=== PATIENT | male | born 1975 | race African-American/Black ===

== ENCOUNTER 2018-03-08 14:07 | Emergency (ER) | payer OTHER ==
[~2018-03-08] VITALS: Ht 182.9 cm; Wt 106.6 kg
--- NOTE | 2018-03-08 17:28 | ED UPPER/LOWER EXTREMITY COMPL ---
History of Present Illness General Chief Complaint: Upper Extremity Injury Stated Complaint: R SHOULDER PAIN LIFTING INJURY Source: patient Exam Limitations: no limitations Vital Signs & Intake/Output Vital Signs & Intake/Output Vital Signs Date Time Temp Pulse Resp B/P B/P Pulse O2 O2 Flow FiO2 Mean Ox Delivery Rate 03/08 1931 97.0 88 20 122/68 98 Room Air 03/08 1724 98.4 101 16 119/62 97 Room Air 03/08 1522 98.7 74 16 141/83 98 Room Air 03/08 1505 98.0 73 18 133/67 98 Room Air Allergies Coded Allergies: No Known Allergies (03/08/18) Reconcile Medications Ibuprofen 800 MG TABLET 1 TAB PO TID pain Oxycodone HCl/Acetaminophen (Percocet 5-325 MG Tablet) 5 MG-325 MG TABLET 1 TAB PO BID pain Triage Note: 42 YEAR OLD MALE STATES THAT HE HAS A TEAR IN R SHOULDER AREA AND HAS SURGERY SCHEDULED 03/15 , 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 PT TOOK TYLENOL OVER AND HOUR AGO WITH NO RELIEF. MEDICATED AT THIS TIME WITH MOTRIN PER ORDER Triage Nurses Notes Reviewed? yes Onset: Abrupt Duration: hour(s):, constant Timing: single episode today Severity: moderate, severe Pain/Injury Location: Right: Shoulder. HPI: 42-year-old male comes into the emergency room for further evaluation of right shoulder pain. Patient reports she has a pre-existing problem injury to his right shoulder. He was lifting with his left arm at work when suddenly he felt severe pain in his right arm has not been able to move it without any pain. Denied feeling any pops. Came in by ambulance. Denies any other associated symptoms. (Ciarna Blackman) Past History Travel History Traveled to [place] past 21 day No Medical History Any Pertinent Medical History? see below for history Neurological: NONE EENT: NONE Cardiovascular: NONE Respiratory: NONE Gastrointestinal: NONE Hepatic: NONE Renal: NONE Musculoskeletal: NONE Psychiatric: NONE Endocrine: NONE Blood Disorders: NONE Cancer(s): NONE IT HELP DESK ANALYST/Reproductive: NONE Surgical History Surgical History: non-contributory Psychosocial History What is your primary language Georgian Tobacco Use: Never used ETOH Use: denies use Illicit Drug Use: denies illicit drug use Family History Hx Contributory? No (Ciaran lBackman) Review of Systems Review of Systems Constitutional: Reports: no symptoms. EENTM: Reports: no symptoms. Respiratory: Reports: no symptoms. Cardiovascular: Reports: no symptoms. Gastrointestinal/Abdominal: Reports: no symptoms. Genitourinary: Reports: no symptoms. Musculoskeletal: Reports: see HPI. Skin: Reports: no symptoms. Neurological/Psychological: Reports: no symptoms. Hematologic/Endocrine: Reports: no symptoms. Immunological: Reports: no symptoms. All Other Systems: Reviewed and Negative (Ciaran Blackman) Physical Exam Physical Exam General Appearance: well developed/nourished, mild distress Head: atraumatic Eyes: Bilateral: normal appearance. 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 Discussed w/RAD: Radiology Read. Radiology Impression: PATIENT: DANIELA CORDOBA PRESENT AGE: 42 PATIENT ACCOUNT NO: [id number] : 77 LOCATION: [facility] ORDERING PHYSICIAN: Ciaran CEBALLOS SERVICE DATE: 03/08/18 EXAM TYPE : RAD - XRY-SHOULDER COMPLETE-RIGHT EXAMINATION: SHOULDER 3 VIEWS, RIGHT CLINICAL INFORMATION: Right shoulder pain. COMPARISON: None. TECHNIQUE: AP views of the right shoulder were obtained in internal and external rotation. In addition, a Y view was obtained. FINDINGS: There are no fractures or dislocations. The humeral head is seated within a well-formed glenoid. The AC joint is intact. IMPRESSION: Unremarkable right shoulder radiographs. DICTATED BY: Errol Kirk MD DATE/TIME DICTATED:03/08/181757 PROCEDURES NURSE: CLAUDIA DATE/TIME TRANSCRIBED:03/08/181757 CONFIDENTIAL, DO NOT COPY WITHOUT APPROPRIATE AUTHORIZATION. <Electronically signed in Other Vendor System> SIGNED BY: Errol Kirk MD 03/08/18 347 (Ciaran Blackman) Departure Departure Disposition: HOME OR SELF CARE Condition: Stable Clinical Impression Primary Impression: Rotator cuff (capsule) sprain Referrals: Patient Has No Primary Care Dr (PCP/Family) Additional Instructions: Take Percocet ibuprofen for pain. Follow-up with primary care doctor. Return if any concerns worsening symptoms. Please go over all results of today's visit with your primary care doctor. Contact your primary care doctor to let them know you were here in the emergency room. There may be nonspecific findings which may not be related to your visit today here in the emergency room but may require further evaluation and chronic monitoring by your primary care doctor. If you had a laceration today the chance of foreign body always remains. You should follow-up with your primary care doctor for recheck in 3-5 days for a wound check. If you had an x-ray done there is a chance that a fracture could have been missed on initial read and you should follow-up with your primary care doctor for repeat x-rays if symptoms persist. If your blood pressure was elevated here in the emergency room please have rechecked by [facility] primary care doctor within the next 48. If you were prescribed a narcotic here in the emergency room or any type of controlled substances you're not allowed to drive while taking this medication or operate any type of heavy machinery. Narcotics can make you feel lightheaded dizziness nausea and can cause constipation. 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 Thank you for choosing [facility] emergency room. Please return to the emergency room immediately if you have any other concerns worsening of symptoms. Departure Forms: Customer Survey General Discharge Information Prescriptions: Current Visit Scripts Oxycodone HCl/Acetaminophen (Percocet 5-325 MG Tablet) 1 TAB PO BID #10 TAB Ibuprofen 1 TAB PO TID #30 TAB (Ciaran Blackman) PA/RIBBON WINDER Co-Sign Statement Statement: ED Attending supervision documentation- [] I saw and evaluated the patient. I have also reviewed all the pertinent lab results and diagnostic results. I agree with the findings and the plan of care as documented in the PA's/RIBBON WINDER's documentation. [x] I have reviewed the ED Record and agree with the PA's/RIBBON WINDER's documentation. [] Additions or exceptions (if any) to the PAs/RIBBON WINDER's note and plan are summarized below: [] (Michael Ladd DO) Procedures Splinting Location: right shoulder Manual Alignment Performed: No Pre-Made Type: shoulder mobilizer Splint Applied By: splint applied by me Pre-Proc Neuro Vasc Exam: normal Post-Proc Neuro Vasc Exam: normal (Ciaran Blackman)
--- NOTE | 2018-03-08 18:03 | RADIOLOGY REPORT ---
EXAMINATION: SHOULDER 3 VIEWS, RIGHT CLINICAL INFORMATION: Right shoulder pain. COMPARISON: None. TECHNIQUE: AP views of the right shoulder were obtained in internal and external rotation. In addition, a Y view was obtained. FINDINGS: There are no fractures or dislocations. The humeral head is seated within a well-formed glenoid. The AC joint is intact. IMPRESSION: Unremarkable right shoulder radiographs.
[2018-03-08] MEDS ORDERED: IBUPROFEN800 M1 PO (19:16)
[2018-03-08] MEDS ORDERED: PERCOCET 5-3251 EACH PO (19:16)
== END 2018-03-08 20:11 ==
LOC: ERH 14:07
DX: S43.421A Sprain of right rotator cuff capsule, initial encounter (principal); X50.9XXA Other and unspecified overexertion or strenuous movements or postures, initial encounter; Y93.89 Activity, other specified; Y92.9 Unspecified place or not applicable
CPT/HCPCS: 73030-RT